=== PATIENT | male | born 1980 | race Caucasian/White ===

== ENCOUNTER 2018-02-18 09:50 | Emergency (ER) | payer BC, SELFPAY ==
[2018-02-18 09:52] VITALS: BP 128/80; PULSE 84; RESP 16; TEMP 36.2; O2SAT 97; BMI 20.5
[2018-02-18 09:59] VITALS: O2SAT 97
--- NOTE | 2018-02-18 10:03 | ED.VISSUMM ---
- ER Visit Summary Date of Service: 02/18/18 Chief Complaint: Cough History of Present Illness: The patient is a 37 M with 5-6 days of productive cough, difficulty breathing and postnasal drip. Patient denies fevers. He is a smoker. He has no chest pain, nausea vomiting. Physical Examination: Not appear in acute distress. Moist mucous membranes, no obvious facial deformity. He has upper airway congestion, swollen nasal turbinates and postnasal drip. No C-spine tenderness supple neck. Regular rate and rhythm without any obvious murmurs There is bilateral bronchial breath sounds, end expiratory wheezing. Abdomen soft and nontender no guarding or rebound Moves all extremities without any difficulty or pain. Skin does not show any obvious rashes or lesions, no trauma. Alert oriented ?3 with no gross focal deficit ] Emergency Department Course and Treatment: Patient appears well, he is nontoxic, likely has bronchitis but because of his productive cough I am worried about progression to pneumonia therefore I will start antibiotics. He will also be given albuterol for home. Disposition: Discharge stable condition Impression: Acute bronchitis This note was generated with [employer] dictation software. It may contain incorrect words, spelling, and punctuation that were not noted in review of the chart prior to signing ED Disposition - Plan for ED Patient: Disposition: Home or Assisted Living Chief Complaint: Cough Instructions: ED Reactive Airway Disease, Tips for Quitting Smoking (Cardiovascular) Prescriptions: Albuterol IH (ProAir) [Proair Hfa (SP)Vent Pts] 1 puff INHALATION Q4H PRN PRN #1 inhaler PRN Reason: Sob &/Or Wheezing Azithromycin 250 mg PO DAILY #4 tab Referrals: Care Physician,No Primary [Primary Care Provider] - 3-5 Days
[2018-02-18 10:11] VITALS: PULSE 88; RESP 20
[2018-02-18] MEDS: Ipratropium/Albuterol Sulfate 3 ML AMPUL.NEB INHALATION (10:11)
[2018-02-18] MEDS: Azithromycin 250 MG Tablet 500 MG PO (10:22)
[2018-02-18 10:23] VITALS: BP 121/74; PULSE 62; RESP 15; O2SAT 98
--- NOTE | 2018-02-19 14:47 | CM.ED ---
ED CALLBACK: Follow-up call placed to patient. Patient states he is feeling a lot better. He states he is planning to [place] pick[place] his prescriptions this afternoon. He denies having a PCP. He states he has been busy with a recent move and denies needing assistance with this. Patient thanks and denies any questions or needs at this time.
== END 2018-02-18 10:23 | disposition home or self-care (01) ==
LOC: ED 10:18
PROVIDERS: Emergency Provider Emergency Medicine
DX: J20.9 Acute bronchitis, unspecified (principal); Z72.0 Tobacco use
CPT/HCPCS: 94640; 99283